=== PATIENT | female | born 1930 | race Caucasian/White ===

== ENCOUNTER 2017-12-09 15:15 | Outpatient (CLI) | payer MEDICARE, OTHER ==
[2015-08-19 17:27] VITALS: BP 127/69
--- NOTE | 2017-12-09 19:36 | Diagnostic Imaging Report ---
GABBY ANDERSON [facility] [address] [facility].[address] [address] Report Submission Date: Dec 09, 2017 3:49:41 PM CDT Patient Study Name: WOODY HOOK Date: Dec 09, 2017 3:15:48 PM CDT Modality Type: DX Gender: F Description: LOWER EXTREMITY : [birth year] Institution: [facility] Physician: GABBY ANDERSON Examination: Plain film right foot History: RT FOOT, PAIN/SWELLING IN RT FOOT. NO KNOWN INJURY (Hx) Findings: 3 views of the right foot demonstrates generalized osteopenia. Articular degenerative changes: most pronounced involving the 1st metatarsophalangeal articulation. Mild 1st digit hallux valgus deformity. No fracture or dislocation. Calcaneal spurs. No soft tissue swelling. No joint effusion. Impression: Osteopenia and degenerative changes. No fracture. Electronically signed on Dec 09, 2017 3:49:41 PM CDT by: Sin DOMINGUEZ
== END 2017-12-09 15:16 ==
LOC: RAD 15:15
PROVIDERS: ATTEND Physician Assistant
DX: M79.674 Pain in right toe(s) (principal)
CPT/HCPCS: 73630

== ENCOUNTER 2018-03-29 14:07 | Outpatient (CLI) | payer MEDICARE, OTHER ==
[2015-08-19 17:27] VITALS: BP 127/69
--- NOTE | 2018-03-29 17:09 | Diagnostic Imaging Report ---
LISA SILVERMAN [facility] [address] [facility] [address] [address] Report Submission Date: Mar 29, 2018 3:04:08 PM ADAPTIVE PHYSICAL EDUCATOR Patient Study Name: WOODY HOOK Date: Mar 29, 2018 2:11:42 PM ADAPTIVE PHYSICAL EDUCATOR Modality Type: DX Gender: F Description: LOWER EXTREMITY : [birth year] Institution: [facility] Physician: LISA SILVERMAN Examination: Plain film left foot History: ACUTE GOUT OF LEFT FOOT, CELLULITIS. (Hx) Findings: 3 weightbearing views of the foot demonstrates osteopenia. Articular degenerative changes. No fracture or dislocation. Calcaneal spurs. Soft tissue fullness. Impression: Osteopenia and articular degenerative changes. No acute appearing cortical abnormality. Soft tissue fullness suggesting inflammation - correlate clinically. Electronically signed on Mar 29, 2018 3:04:08 PM ADAPTIVE PHYSICAL EDUCATOR by: Sin DOMINGUEZ
== END 2018-03-29 14:10 ==
LOC: RAD 14:07
PROVIDERS: ATTEND Podiatrist Foot & Ankle Surgery
DX: M85.872 Other specified disorders of bone density and structure, left ankle and foot (principal); M24.175 Other articular cartilage disorders, left foot; M10.9 Gout, unspecified; L03.116 Cellulitis of left lower limb; M79.672 Pain in left foot
CPT/HCPCS: 73630

== ENCOUNTER 2018-04-14 12:40 | Outpatient (CLI) | payer MEDICARE, OTHER ==
[2015-08-19 17:27] VITALS: BP 127/69
[2018-04-14 13:19] LABS: eGFR (Non-African) 19
== END 2018-04-14 12:55 ==
LOC: LAB 12:40
PROVIDERS: ATTEND Podiatrist Foot & Ankle Surgery
DX: M10.9 Gout, unspecified (principal)
CPT/HCPCS: 36415; 80048; 84550

== ENCOUNTER 2018-05-27 13:01 | Outpatient (CLI) | payer MEDICARE, OTHER ==
[2015-08-19 17:27] VITALS: BP 127/69
[2018-05-27 13:48] LABS: eGFR (Non-African) 25
== END 2018-05-27 13:03 ==
LOC: LAB 13:01
PROVIDERS: ATTEND Podiatrist Foot & Ankle Surgery
DX: M10.9 Gout, unspecified (principal)
CPT/HCPCS: 36415; 80048; 84550

== ENCOUNTER 2018-06-25 21:34 | Emergency (ER) | payer MEDICARE, OTHER ==
--- NOTE | 2018-06-25 21:46 | ED Physician Documentation ---
General Adult - HISTORIAN Historian: patient - HPI Stated Complaint: L ring finger swelling, L hand pain Chief Complaint: General Adult Onset: days ago Timing: still present Severity: moderate Further Comments: yes (Pt is an 88 yo female who got her L hand caught in a drawer earlier this week. Pt has pain in her hand, and also has swelling warmth and tenderness around the fingernail of her L ring finger. No fever, n/v.) - ROS CONST: no problems EYES/ENT: none CVS/RESP: none GI/: none MS/SKIN/LYMPH: joint pain (L hand pain), other (swelling, warmth, tenderness around L ring finger nail) - PAST HX Past History: other (CHF, COPD, cancer) Surgeries/Procedures: cholecystectomy, other (appendectomy, tonsilectomy) Allergies/Adverse Reactions: Allergies Allergy/AdvReac Type Severity Reaction Status Date / Time No Known Allergies Allergy Verified 06/25/18 21:56 Home Medications: Ambulatory Orders Medication Instructions Recorded Carbidopa/Levodopa [Sinemet] 1 each PO TID 08/19/15 Metoprolol Succinate 25 mg PO DAILY 08/19/15 Albuterol Sulfate [Proair 2 puff IH Q6 PRN 06/25/18 Respiclick] Aspirin 81 mg PO DAILY 06/25/18 Cephalexin [Keflex] 500 mg PO Q12H #20 capsule 06/25/18 Cholecalciferol [Vitamin D-3] 2,000 mg PO DAILY 06/25/18 Citalopram Hydrobromide [Celexa] 20 mg PO BID 06/25/18 Cyanocobalamin (Vitamin B-12) 1,000 mcg PO DAILY 06/25/18 [Vitamin B-12] Ferrous Sulfate 325 mg PO DAILY 06/25/18 Potassium Chloride 20 meq PO BID 06/25/18 Torsemide [Demadex] 40 mg PO BID 06/25/18 Umeclidinium Brm/Vilanterol Tr 1 puff IH DAILY 06/25/18 [Anoro Ellipta 62.5-25 Mcg INH] - SOCIAL HX Smoking History: quit greater than 1 year - FAMILY HX Family History: No - VITAL SIGNS Vital Signs: Vital Signs Temp Pulse Resp BP Pulse Ox 127/69 08/19/15 17:25 - REVIEWED ASSESSMENTS Nursing Assessment Reviewed: Yes Vitals Reviewed: Yes Progress - Progress Progress: X-ray L hand: Findings: Examination left hand in palmar, lateral and oblique views demonstrates degenerative changes with narrowing of the interphalangeal joints as well as the radiocarpal, lateral intercarpal and 1st carpometacarpal joints. Bony structures are osteopenic. There is a fracture through the base of the 4th distal phalanx with minimal displacement the fracture fragments. Bony phalanx has an unusual appearance suggesting possible pressure erosion or other lytic destructive process. There is no other lytic or blastic lesion and this would be an unusual site for metastasis. Impression: 1. Fracture base of 4th distal phalanx with an abnormal appearing bone probably related to pressure erosion. Inflammation distal 4th digit L hand appears as paronychia. Digital block with 4 cc Lidocaine 1% and swollen (?floculant) area lanced. No pus seen. Will rx Keflex 500 mg po bid x 10 days for apparent infection. Pt declines pain medication. Will f/u with pcp or return to ER if swelling unimproved. D/c instructions Fracture of base of distal phalanx of Left ring finger (fracture of base of the bone at end of the left ring finger) with possible infection. Rx Keflex 500 mg. Take one every 12 hours for 10 days. Return to ER if swelling or pain gets worse or if you have new symptoms or concerns. Follow up with your primary provider on Wednesday for re-evaluation. General Adult Physical Exam - PHYSICAL EXAM GENERAL APPEARANCE: mild distress NECK: normal inspection, supple RESPIRATORY: no resp distress, chest non-tender, breath sounds normal CVS: reg rate & rhythm, heart sounds normal BACK: normal inspection SKIN: other (Swelling, redness, tenderness distal L ring finger c/w paronychia. Pain ventral L hand over metacarpels without swelling or inflammation.) EXTREMITIES: other (Swelling, redness, tenderness distal L ring finger c/w paronychia. Pain ventral L hand over metacarpels without swelling or inflammation.) NEURO: oriented X3, motor nml, sensation nml Discharge Clincal Impression: fracture distal phalanx L ring finger, ? superinfection distal L ring finger Prescriptions: Cephalexin [Keflex] 500 mg PO Q12H #20 capsule Referrals: Aixa Gramajo MD [Primary Care Provider] - 2 Days Condition: Stable Disposition: 01 HOME, SELF-CARE Decision to Admit: NO Decision Time: 23:11
[2018-06-25] MEDS ORDERED: Lidocaine 1% 5ml 10 MG/ML VIAL IJ ONE (21:52)
[2018-06-25] MEDS ORDERED: CEPHALEXIN 250 MG CAPSULE PO ONE ×2 (23:01→23:20)
[2018-06-25 23:37] VITALS: BP 112/64
--- NOTE | 2018-06-26 06:10 | Diagnostic Imaging Report ---
GALILEO MARTINEZ [facility] [address] [facility] [address] [place], [place]. [address] Report Submission Date: Jun 25, 2018 10:25:19 PM CDT Patient Study Name: WOODY HOOK Date: Jun 25, 2018 9:49:36 PM CDT Modality Type: DX Gender: F Description: HAND 3 VIEWS OR MORE : [birth year] Institution: [facility] Physician: GALILEO MARTINEZ Three views left hand Clinical history: Pain. Findings: Examination left hand in palmar, lateral and oblique views demonstrates degenerative changes with narrowing of the interphalangeal joints as well as the radiocarpal, lateral intercarpal and 1st carpometacarpal joints. Bony structures are osteopenic. There is a fracture through the base of the 4th distal phalanx with minimal displacement the fracture fragments. Bony phalanx has an unusual appearance suggesting possible pressure erosion or other lytic destructive process. There is no other lytic or blastic lesion and this would be an unusual site for metastasis. Impression: 1. Fracture base of 4th distal phalanx with an abnormal appearing bone probably related to pressure erosion. Electronically signed on Jun 25, 2018 10:25:19 PM CDT by: Reese DOMINGUEZ
== END 2018-06-25 23:20 | disposition home or self-care (01) ==
LOC: ED 21:34
DX: S62.635A Displaced fracture of distal phalanx of left ring finger, initial encounter for closed fracture (principal); W23.0XXA Caught, crushed, jammed, or pinched between moving objects, initial encounter; Y93.9 Activity, unspecified; Y92.9 Unspecified place or not applicable
CPT/HCPCS: 73130; 99283